=== PATIENT | male | born 1995 | race Hispanic/Latino ===

== ENCOUNTER 2018-08-05 05:04 | Inpatient (IN) | payer BC, SELFPAY ==
[2018-08-05] MEDS ORDERED: Ondansetron PF 4 MG/2 ML Vial ONE ×3 (05:20→12:29)
[2018-08-05] MEDS ORDERED: Dicyclomine 20 MG TAB ONE (05:20)
[2018-08-05 05:36] LABS: #Basophils 0.1 thou/uL (0.0-0.2); #Eosinphils 0.5 thou/uL (0.0-0.7); #Neutrophils 10.1 thou/uL (1.40-6.50); %Basophils 0.4 % (0.0-1.0); %Eosinophils 3.3 % (0.0-10.0); %Lymphocytes 20.5 % (21.0-51.0); %Monocytes 7.1 % (0.0-10.0); %Neutrophils 68.6 % (42.0-75.0); Hemoglobin 16.3 g/dL (14.0-18.0); Mean Corpuscular HGB CONC 35.1 g/dL (32.0-36.0); Mean Corpuscular Hemoglobin 30.4 pg (27.0-31.0); Mean Corpuscular Volume 86.6 fL (78.0-98.0); Mean Platelet Volume 7.5 fL (7.4-10.4); Platelet Count 329 thou/uL (130-400); RBC Distribution Width 11.5 % (11.5-14.5); Red Blood Cell (RBC) Count 5.37 mill/uL (4.70-6.10); White Blood Cell (WBC) Count 14.7 thou/uL (4.8-10.8)
[2018-08-05 05:43] LABS: INR-International Normal Ratio 1.2; Prothrombin Time 15.1 SEC (12.0-14.7)
[2018-08-05 05:44] LABS: PTT 47.3 SEC (22.9-36.1)
[2018-08-05 05:55] LABS: Bilirubin Negative (Negative); Blood, Urine Negative (Negative); Clarity CLEAR (Clear); Glucose, Urine (Dipstick) Negative (Negative); Leukocyte Negative (Negative); Nitrite Negative (Negative); Protein, Urine (Dipstick) Negative (Neg-Trace); Specific Gravity, Urine 1.028 (1.002-1.036); Urobilinogen 0.2 mg/dL (0.2-1.0)
[2018-08-05 06:15] LABS: ALT (SGPT) 10 U/L (8-55); AST (SGOT) 16 U/L (5-34); Albumin 4.3 g/dL (3.5-5.0); Alkaline Phosphatase 95 U/L (40-150); Anion Gap 13 mmol/L (10-20); BUN (Urea Nitrogen) 10 mg/dL (8.9-20.6); Bilirubin, Total 0.7 mg/dL (0.2-1.2); Calc. Creatinine Clearance 0 mL/min (70-130); Calcium 9.4 mg/dL (7.8-10.44); Carbon Dioxide 24 mmol/L (22-29); Chloride 104 mmol/L (98-107); Estimated GFR-MDRD Greater than 90; Globulin 3.4 g/dL (2.4-3.5); Glucose 101 mg/dL (70-105); Lipase 19 U/L (8-78); Potassium 3.8 mmol/L (3.5-5.1); Protein, Total 7.7 g/dL (6.0-8.3); Sodium 137 mmol/L (136-145)
[2018-08-05] MEDS ORDERED: Morphine 2 MG/ML SYRINGE ONE (06:22)
[2018-08-05] MEDS ORDERED: Piperacillin/Tazobactam 4.5 GM VIAL ONE (06:22)
--- NOTE | 2018-08-05 08:07 | CT ---
PRELIMINARY REPORT/[facility]/EMERGENTY AFTER-HOURS PROCEDURE CT Abdomen and Pelvis With Contrast EXAM DATE/TIME: 08/05/2018 5:29 AM CLINICAL HISTORY: 23 years old, male; Pain; Abdominal pain; Localized; Right lower quadrant (rlq); Patient HX: Er 5; , M23 reports to ed C/O abdominal pain. PT reports abdominal pain started last night, however pain was dual. PT reports the pain has been gradually increasing throughout the night. PT reports pain woke him up this morning. PT reports pain is mostly in the rlq. PT reports nausea, however resolved. PT denies vomiting or diarrhea. TECHNIQUE: Axial computed tomography images of the abdomen and pelvis with intravenous contrast. Coronal reforma tted images were created and reviewed. COMPARISON: No relevant prior studies available. FINDINGS: Lower thorax: No acute findings. ABDOMEN: Liver: Normal. No mass. Gallbladder and bile ducts: Normal. No calcified stones. No ductal dilation. Pancreas: Normal. No ductal dilation. Spleen: Normal. No splenomegaly. Adrenals: Normal. No mass. Kidneys and ureters: Normal. No hydronephrosis. Stomach and bowel: Mild wall thickening involving the sigmoid and descending colon is likely due to u nderdistention. Colitis is not excluded. Mild jejunal wall thickening is seen. Appendix: The appendix demonstrates diffuse distention measuring 14 mm, consistent with acute appendi citis. Obstructing stone measuring 1.2 cm is noted in the base of the appendix. Several appendicolith s are noted in the distal appendix the largest measuring 4 mm. PELVIS: Bladder: Mild thickening of the urinary bladder wall is likely due to under distention. Cystitis is n ot excluded. Reproductive: Unremarkable as visualized. ABDOMEN and PELVIS: Intraperitoneal space: Moderate free fluid in the pelvis is likely reactive. No evidence of free air in the abdomen. Bones/joints: No acute fracture. No dislocation. Soft tissues: Unremarkable. Vasculature: Normal. No abdominal aortic aneurysm. Lymph nodes: Clustered mildly enlarged mesenteric and ileocolic lymph nodes are seen. IMPRESSION: 1. The appendix demonstrates diffuse distention measuring 14 mm with surrounding fat stranding and wa ll enhancement, consistent with acute appendicitis. No evidence of perforation or abscess. Obstructin g stone measuring 1.2 cm at the base of the appendix. Several appendicoliths noted in the distal appe ndix the largest measuring 4 mm. 2. Mild jejunal wall thickening with mesenteric and ileocolic lymph nodes may represent mild mesenter ic adenitis. 3. Moderate free fluid in the pelvis is likely reactive. THIS REPORT CONTAINS FINDINGS THAT MAY BE CRITICAL TO PATIENT CARE. The findings were verbally commun icated via telephone conference with VICKY CHAN at 6:07 AM [employer] on 08/05/2018. The findings wer e acknowledged and understood. Thank you for allowing us to participate in the care of your patient. Dictated and Authenticated by: Belen Shields MD 08/05/2018 6:07 AM Central Time ([place] & [place]) FINAL REPORT CT ABDOMEN WITH CONTRAST CT PELVIS WITH CONTRAST: HISTORY: Right lower quadrant pain. COMPARISON: None. FINDINGS: This report is in agreement with the preliminary report by [facility]. There is wall thickening of the left hemicolon likely due to inadequate distention. There are multiple appendicoliths in a markedly dist ended appendix. There is fluid within the appendix along with adjacent mesenteric fat stranding. No evidence of perforation or abscess. CT evidence for appendicitis. There is free fluid I the pelvis . Scattered nonspecific mesenteric lymph nodes are presumed to be reactive. POS: MELBA
[2018-08-05] MEDS ORDERED: Fentanyl 100 MCG/2 ML VIAL ONE ×3 (08:09→11:27)
[2018-08-05] MEDS ORDERED: Bupivacaine/Epinephrine 0.25% 30 ML VIAL ONE (08:46)
[2018-08-05] MEDS ORDERED: Midazolam HCl 2 mg/2 ml Vial ONE ×2 (09:10→09:18)
[2018-08-05] MEDS ORDERED: Iopamidol 370 76% 100 ML VIAL ONE (10:47)
[2018-08-05] MEDS ORDERED: HYDROcodone/Acetaminophen 7.5/325 mg Tablet PO PRN (11:32)
[2018-08-05] MEDS ORDERED: Acetaminophen 325 MG TAB PO PRN (11:34)
[2018-08-05] MEDS ORDERED: Ibuprofen 200 MG TAB PO PRN (11:36)
[2018-08-05] MEDS ORDERED: Ondansetron PF 4 MG/2 ML Vial IVP PRN (11:38)
[2018-08-05] MEDS ORDERED: Morphine 4 MG/ML VIAL ONE (11:53)
[2018-08-05] MEDS ORDERED: Glycopyrrolate 0.2 MG/ML 5 ML SYRINGE ONE (12:29)
[2018-08-05] MEDS ORDERED: PROPOFOL 200 MG/20 ML VIAL ONE (12:29)
[2018-08-05] MEDS ORDERED: Dexamethasone 20 MG/5 ML VIAL ONE (12:29)
[2018-08-05] MEDS ORDERED: Succinylcholine Chloride 20 MG/ML 10 ml SYRINGE FS ONE (12:29)
[2018-08-05] MEDS: Piperacillin/Tazobactam 3.375 GM in Sodium Chloride 0.9% 100 ML IVPB SCH ×3 (12:35→23:43)
[2018-08-05 13:18] VITALS: BMI 26.5
--- NOTE | 2018-08-05 13:28 | PDOC.OP ---
Operative Note - Operative Note Operative Note: PROCEDURE: Laparoscopic appendectomy SURGEON: Presley Sanders M.D. DATE OF PROCEDURE: 08/05/2018 PREOPERATIVE DIAGNOSIS: Appendicitis POSTOPERATIVE DIAGNOSIS: Appendicitis, with contained perforation. HISTORY: Patient is a 23 year old with a one day history of right sided abdominal pain and CT proven appendicitis. Recommendation was made to proceed to the operating room for laparoscopic appendectomy. FINDINGS: Acutely inflamed appendix with normal base. Purulent fluid in the mesoappendix consistent with a contained perforation. DESCRIPTION OF PROCEDURE: After informed consent was obtained and appropriate antibiotics continued, the patient was taken to the operating room and placed in the supine position and general endotracheal anesthesia was administered. The bladder was decompressed with a Staples catheter and the abdomen was prepped and draped in the standard sterile fashion. Local anesthesia was infused to the skin and subcutaneous tissues superior to the umbilicus. A transverse skin incision was made and a Veress needle placed into the abdominal cavity and carbon dioxide gas insufflated without difficulty. Opening pressure was less than 5. Carbon dioxide gas was insufflated to an intra-abdominal pressure 15 and the patient tolerated this well. The Veress needle was withdrawn and a [place] port advanced under direct laparoscopic vision into the abdominal cavity. Two additional ports were placed in the suprapubic and left lateral abdomen under direct laparoscopic vision after local anesthesia was infused at these sites. The appendix was identified and appeared inflamed but not perforated. The appendix was grasped by the mesoappendix and elevated. The mesoappendix was then sequentially ligated and divided down to the base of the appendix, which was normal in appearance and was clearly seen to be at the confluence of the tenia. As the mesoappendix was divided a small pocket of purulent fluid was encountered consistent with a contained perforation and abscess. The pus was suctioned out and sent for Gram stain and culture. Two Endoloops were placed around the base of the appendix and the appendix was divided between these Endoloops, placed into an EndoCatch bag and drawn out through the suprapubic incision. The suprapubic trocar was then replaced and the operative site was easily irrigated to clear. A SARAH drain was placed through the suprapubic trocar and drawn out through the left lower quadrant skin site and secured to the skin. The internal portion of the drain was placed down into the pelvis with the end up next to the appendiceal stump. The suprapubic trocar was removed and the fascia closed under direct laparoscopic vision with a 0 Vicryl suture on a GraNee needle with excellent technical result. The left lateral trocar was then removed and hemostasis verified. Carbon dioxide gas was desufflated through the umbilical trocar which was then removed. The skin incisions were irrigated and additional local anesthesia infused at each site. The skin was closed with 4-0 subcuticular Monocryl sutures and Dermabond dressings were placed. The drain site was dressed with gauze and Tegaderm. The patient was extubated and taken to the recovery room in good condition. Estimated blood loss was minimal. There were no complications. SPECIMEN: Appendix, with pus from periappendiceal abscess sent for Gram stain and culture.
[2018-08-05] MEDS: HYDROcodone/Acetaminophen 7.5/325 mg Tablet PO PRN ×2 (14:31→18:32)
[2018-08-05] MEDS: Ibuprofen 200 MG TAB PO PRN (16:13)
--- NOTE | 2018-08-05 20:59 | HP ---
HISTORY: Mr. Jasmyne Esquivel is a 23-year-old man with onset of right-sided abdominal pain yesterday. He states that it is more in the lower abdomen that radiates up and around the abdomen. It is much worse with ambulating. He has had some nausea, but no vomiting. He denies any fevers or chills or any diarrhea or dysuria. He has no ill contacts or unusual ingestions. He last ate last evening, a small piece of hamburger and some Sprite, but has not really had an appetite. He came to the emergency room because the pain was not improving and was diagnosed with appendicitis by CT. PAST MEDICAL HISTORY: None. PAST SURGICAL HISTORY: Ear tubes as a baby. FAMILY HISTORY: Renal cell carcinoma in his mother, who underwent a partial nephrectomy. There is also a family history of diabetes. SOCIAL HISTORY: He does not smoke, but he does occasionally smoke marijuana and he drinks socially. MEDICATIONS: No outpatient medications. He received Zosyn in the emergency room. ALLERGIES: NO ALLERGIES. REVIEW OF SYSTEMS: A 10-system review of systems is negative except for HPI. PHYSICAL EXAMINATION: VITAL SIGNS: The patient is afebrile with normal vital signs. GENERAL: Reveals a healthy-appearing young man, in no acute distress. He is not flushed or toxic in appearance. He is not jaundiced or icteric. HEENT: Unremarkable. NECK: Supple without lymphadenopathy or thyroid nodules. HEART: Regular in rate and rhythm without murmurs, rubs, or gallops. LUNGS: Clear to auscultation bilaterally. ABDOMEN: Soft and diffusely mildly tender to palpation with more marked tenderness in the right lower quadrant greater than right upper quadrant. He does exhibit some voluntary guarding. No palpable masses or hernias. EXTREMITIES: Warm and well perfused without edema. NEUROLOGIC: No focal deficits. PSYCHIATRIC: Alert, oriented, and appropriate. LABORATORY DATA: White count is elevated at 14. Other labs are unremarkable. CT images revealed acute appendicitis. ASSESSMENT: Acute appendicitis. PLAN: Laparoscopic appendectomy. The patient's diagnosis and recommended treatment were discussed with him. Alternatives were discussed including IV antibiotics and he has decided to proceed with surgery. Inherent risks were reviewed. These include, but are not limited to bleeding, infection, risks of anesthesia, damage to nearby structures including bowel and blood vessels, need for other surgeries, and need for open surgery. He understands that if he is found to have any evidence of perforation, he will be admitted for IV antibiotics and the drain may be placed. Otherwise, he should be able to be discharged home postoperatively. All of his questions were answered. Job ID: [id number]
[2018-08-06] MEDS: Piperacillin/Tazobactam 3.375 GM in Sodium Chloride 0.9% 100 ML IVPB SCH ×3 (05:22→17:31)
[2018-08-06 05:57] LABS: #Lymphocytes 1.4 thou/uL (1.20-3.40); #Monocytes 1.2 thou/uL (0.11-0.59); #Neutrophils 15.9 thou/uL (1.40-6.50); %Basophils 0.1 % (0.0-1.0); %Eosinophils 0.1 % (0.0-10.0); %Lymphocytes 7.4 % (21.0-51.0); %Monocytes 6.6 % (0.0-10.0); %Neutrophils 85.8 % (42.0-75.0); Hemoglobin 14.6 g/dL (14.0-18.0); Mean Corpuscular HGB CONC 35.1 g/dL (32.0-36.0); Mean Corpuscular Volume 88.3 fL (78.0-98.0); Mean Platelet Volume 7.6 fL (7.4-10.4); Platelet Count 289 thou/uL (130-400); RBC Distribution Width 11.4 % (11.5-14.5); White Blood Cell (WBC) Count 18.5 thou/uL (4.8-10.8)
[2018-08-06 06:12] LABS: Anion Gap 11 mmol/L (10-20); BUN (Urea Nitrogen) 8 mg/dL (8.9-20.6); Calc. Creatinine Clearance 152 mL/min (70-130); Calcium 9.2 mg/dL (7.8-10.44); Carbon Dioxide 26 mmol/L (22-29); Chloride 105 mmol/L (98-107); Estimated GFR-MDRD Greater than 90; Glucose 138 mg/dL (70-105); Potassium 4.5 mmol/L (3.5-5.1); Sodium 137 mmol/L (136-145)
[2018-08-06] MEDS: Ibuprofen 200 MG TAB PO PRN ×3 (08:23→21:24)
[2018-08-06] MEDS: Enoxaparin Sodium 40 MG/0.4 ML SYRINGE SC SCH (08:24)
[2018-08-06] MEDS: Acetaminophen 325 MG TAB PO PRN ×2 (12:12→21:24)
[2018-08-06] MEDS: Docusate 100 MG CAP PO SCH (21:24)
[2018-08-07] MEDS: Piperacillin/Tazobactam 3.375 GM in Sodium Chloride 0.9% 100 ML IVPB SCH ×4 (00:23→18:06)
[2018-08-07 06:28] LABS: #Basophils 0.1 thou/uL (0.0-0.2); #Eosinphils 0.4 thou/uL (0.0-0.7); #Lymphocytes 2.1 thou/uL (1.20-3.40); #Monocytes 0.9 thou/uL (0.11-0.59); #Neutrophils 7.8 thou/uL (1.40-6.50); %Basophils 0.5 % (0.0-1.0); %Eosinophils 3.9 % (0.0-10.0); %Lymphocytes 18.7 % (21.0-51.0); %Monocytes 8.1 % (0.0-10.0); %Neutrophils 68.7 % (42.0-75.0); Hemoglobin 13.4 g/dL (14.0-18.0); Mean Corpuscular HGB CONC 33.5 g/dL (32.0-36.0); Mean Corpuscular Volume 89.4 fL (78.0-98.0); Mean Platelet Volume 7.4 fL (7.4-10.4); Platelet Count 251 thou/uL (130-400); RBC Distribution Width 11.3 % (11.5-14.5); Red Blood Cell (RBC) Count 4.47 mill/uL (4.70-6.10); White Blood Cell (WBC) Count 11.3 thou/uL (4.8-10.8)
[2018-08-07] MEDS: Polyethylene Glycol 3350 17 GM Packet PO SCH (09:23)
[2018-08-07] MEDS: Acetaminophen 325 MG TAB PO PRN (09:23)
[2018-08-07] MEDS: Docusate 100 MG CAP PO SCH ×2 (09:23→21:42)
[2018-08-07] MEDS: Enoxaparin Sodium 40 MG/0.4 ML SYRINGE SC SCH (09:23)
[2018-08-07] MEDS ORDERED: Ibuprofen 600 MG TAB PO PRN (11:22)
[2018-08-07] MEDS ORDERED: Acetaminophen 500 MG TAB PO PRN (11:22)
[2018-08-07] MEDS ORDERED: traMADol HCl 50 MG TAB PO PRN ×2 (11:22)
--- NOTE | 2018-08-07 11:58 | PRG ---
DATE OF SERVICE: 08/07/2018 SUBJECTIVE: Mr. Esquivel is doing well today. OBJECTIVE: VITAL SIGNS: He is afebrile at 98.4 degrees, pulse 69, and blood pressure 111/72. He has a Staples catheter in place. Output is 950 over 24 hours. SARAH drain 10 mL this morning. It is more serous in nature. LUNGS: Clear to auscultation. CARDIAC: Regular rate and rhythm without murmur or gallop. ABDOMEN: Soft and nontender. He is tolerating regular diet. Wounds look good. LABORATORY DATA: This morning, his white count is 11, hemoglobin is 13. Basic metabolic profile not checked this morning. ASSESSMENT AND PLAN: 1. Urinary retention. Remove his Staples. Start Flomax and voiding trial. 2. Drainage. SARAH drain is normalizing. His white count is near normal. We will check a CBC tomorrow, and if he is afebrile tomorrow and voids well today, he probably could go home tomorrow on oral antibiotics. Job ID: [id number]
[2018-08-08] MEDS: Piperacillin/Tazobactam 3.375 GM in Sodium Chloride 0.9% 100 ML IVPB SCH ×3 (00:12→13:07)
[2018-08-08 06:36] LABS: #Basophils 0.1 thou/uL (0.0-0.2); #Eosinphils 0.8 thou/uL (0.0-0.7); #Lymphocytes 2.2 thou/uL (1.20-3.40); #Monocytes 0.9 thou/uL (0.11-0.59); #Neutrophils 6.8 thou/uL (1.40-6.50); %Basophils 0.8 % (0.0-1.0); %Eosinophils 7.3 % (0.0-10.0); %Lymphocytes 20.3 % (21.0-51.0); %Monocytes 8.5 % (0.0-10.0); %Neutrophils 63.2 % (42.0-75.0); Hemoglobin 14.6 g/dL (14.0-18.0); Mean Corpuscular HGB CONC 33.2 g/dL (32.0-36.0); Mean Corpuscular Hemoglobin 29.5 pg (27.0-31.0); Mean Corpuscular Volume 88.9 fL (78.0-98.0); Mean Platelet Volume 7.4 fL (7.4-10.4); Platelet Count 307 thou/uL (130-400); RBC Distribution Width 11.2 % (11.5-14.5); Red Blood Cell (RBC) Count 4.95 mill/uL (4.70-6.10); White Blood Cell (WBC) Count 10.7 thou/uL (4.8-10.8)
[2018-08-08] MEDS ORDERED: Tamsulosin HCl 0.4 MG CAP PO SCH (09:00)
[2018-08-08] MEDS: Docusate 100 MG CAP PO SCH (09:29)
[2018-08-08] MEDS: Polyethylene Glycol 3350 17 GM Packet PO SCH (09:29)
[2018-08-08] MEDS: Enoxaparin Sodium 40 MG/0.4 ML SYRINGE SC SCH (09:30)
[2018-08-08 15:53] VITALS: BP 113/75; TEMP 98.8
--- NOTE | 2018-08-08 17:43 | PRG ---
DATE OF SERVICE: 08/08/2018 SUBJECTIVE: Mr. Esquivel is doing well today. He has not had a fever in over 48 hours. His white count is 10.7. He is tolerating his diet. He is having bowel movements. OBJECTIVE: LUNGS: Clear to auscultation. CARDIAC: Regular rate and rhythm without murmur or gallop. ABDOMEN: Soft and nontender. SARAH drain serous, non-cloudy, dilute. ASSESSMENT AND PLAN: Doing well. We will plan discharge home with Augmentin for five days. Ultram p.r.n. pain. Tylenol and ibuprofen for pain. Follow up with Dr. Sanders in 2 to 3 weeks. Job ID: [id number]
[2018-08-08] MEDS ORDERED: Amoxicillin/Potassium Clav 500 MG TAB PO SCH (21:00)
--- NOTE | 2018-08-09 03:39 | DIS ---
DATE OF ADMISSION: 08/05/2018 DATE OF DISCHARGE: 08/08/2018 DISCHARGE DIAGNOSIS: Appendicitis with purulence. POSTOPERATIVE DIAGNOSIS: Appendicitis with purulence. PROCEDURE DURING THIS HOSPITALIZATION: CT scan of the abdomen and pelvis on admission in the emergency room, laparoscopic video appendectomy. Drain placed at the time of surgery, removed prior to discharge. DISCHARGE MEDICATIONS: 1. [id number] Tylenol. 2. Ibuprofen for pain. 3. Ultram p.r.n. pain. 4. Augmentin for 5 days. FOLLOWUP: Follow up with Dr. Sanders in 2 to 3 weeks. HISTORY: A 23-year-old male presenting with a history and exam for appendicitis, undergone a CAT scan, confirming this, undergoing laparoscopic video appendectomy. Purulence noted and abdominal washout performed and drain left in place. Postoperatively, the patient convalesced to be and once afebrile for 48 hours with a normal white count, he is discharged home, removing his drain, and follow up with Dr. Sanders. Job ID: [id number]
== END 2018-08-08 17:45 | disposition home or self-care (01) | DRG 340 ==
LOC: ERS 05:04 → SDC 07:54 → SURG A 11:49
PROVIDERS: ADMIT Surgery; ATTEND Surgery
PROC: 0DTJ4ZZ Resection of Appendix, Percutaneous Endoscopic Approach (ICD-10-PCS; principal; 2018-08-05)
DX: K35.32 Acute appendicitis with perforation, localized peritonitis, and gangrene, without abscess (principal); F17.210 Nicotine dependence, cigarettes, uncomplicated
CPT/HCPCS: 36415; 74177; 80048; 80053; 81003; 83690; 85025; 85610; 85730; 86850; 86900; 86901; 87070; 87076; 87077; 87086; 87186; 87205; 88304; 90471; 90686; 96361; 96365; 96375; G0008; J1100; J1650; J2250; J2270; J2405; J2543; J2704; J3010; J7050